=== PATIENT | female | born 1950 | race Caucasian/White ===

== ENCOUNTER → 2024-01-08 | Outpatient (CLI) | payer BC, MEDICARE ==
[2024-01-08 14:20] VITALS: BP 139/72; PULSE 73; RESP 15; TEMP 97.9
--- NOTE | 2024-01-08 14:40 | P.PAINPG ---
PQRS Measure Charge Sheet History and Exam Findings: Imaging or exam suggests Comment: HISTORY OF PRESENT ILLNESS: A 73 yr old female as a referral from Dr Rao presents today w severe and chronic LBP x 3 yrs secondary to DDD, spondylosis and facet arthropathy without myelopathy for evaluation. Pt states pain level is provoked at 9 /10 in intensity, constant, localized in the lumbar spine, predominantly axial, achy in character w occasional shooting pain towards the hips and BLEs. Pain is provoked by walking for periods > 15 min. Pain is alleviated by PT x 2 wks which she is currently in, medications (Mobic), use of a wheelchair and cane for ambulatory assistance, heat, manual massage, repositioning and rest. Oswestry axial pain score at 32. PMH: OA, HTN, NIDDM II, GERD, Fibromyalgia, Anxiety PSH: Cleft Palate Repair, Cholecystectomy, Hysterectomy, Vein Stripping, Colnoscopy, L5-S1 Laminectomy/ Discectomy/ Facetectomy/ Foraminotomy (2011, 2020, 2021), BL Cataract Extraction SH: Negative x3 FH: Fa- CAD/ at age 62. Mo- CAD/ at age 88. Siblings- ALS. All: See list Meds: See list REVIEW OF ORGAN SYSTEMS: CONSTITUTIONAL: No fevers or chills. No recent weight loss. NEUROLOGICAL: + numbness and tingling along the distal extremities. No seizure disorders or headaches. MUSCULOSKELETAL: + pain PSYCHIATRIC: Denies current depression or suicidal thoughts. Physical Examinations : Constitutional : Cooperative , not in acute distress . Neurologic : Cranial nerve II to XII intact. No focal neurological deficits. Psychiatric : alert & oriented x 3. Matching mood & appropriate affect. Judgment & insight intact. Musculoskeletal : Cervical Spine Motor strength in the deltoid and biceps: Normal right side. Normal Left side Motor strength biceps and the wrist extensors: Normal right side . Normal left side Motor strength in the triceps muscle: Normal right side. Normal left side Deep tendon reflexes: Normal at the biceps. Normal at Brachioradialis. Normal at triceps Vertebral body tenderness to deep palpation over Cervical facet loading test: positive bilaterally Spurling test: positive bilaterally Neck distraction test: positive bilaterally Manjula sign: positive bilaterally Lumbar spine Motor strength lower extremities ,thigh and legs 5/5 Right side , 5/5 Left side Deep tendon reflexes : Normal Knee Jerk. Normal Ankle Jerk Vertebral body tenderness over Goins Test positive Lumbar facet Loading Test: positive Right / positive Left Range of motion of the lumbar spine Flexion 30 degrees, extension 10 degrees Straight Leg Raise test: Left/ Right positive at degrees Ovidio test: positive right / positive left. Severe tenderness over the Sacroiliac joint on the Right / Left sides Gaenslen test: positive bilaterally Seated flexion test: positive bilaterally. Sacral spine : Severe tenderness over the Sacroiliac joint: right side / left side Range of motion: Flexion of the lumbar spine <60 degrees Range of motion: Extension of the lumbar spine <20 degrees Gaenslen's Test positive Ovidio test: positive right side / left side Thigh Thrust Test Sacral Thrust Test Assessment/ Plan : CRPS Recommendation of Lumbar Sympathic Ganglion Block and medication management. May need a series of injections for optimal pain relief. Risks, benefits of procedure discussed and patient verbalized understanding. Admits to anti- coagulant use or medical history of diabetes. Protocol for discontinuation/ continuation of medications vinay procedure discussed. Recommendation of [place] 5/325mg #60, Flexeril 5mg #60 w 1 RF. Use, side effects, adverse reactions and safe storage discussed. Narcotic/ Opiate agreement signed 01/08/24. All questions answered. I have spent greater than 30 minutes on patient care today. Dr Kaye was available by phone for the evaluation of this patient. The time was used to review the medical records including relevant urine studies and Prescription history (MAPs), review of the available imaging, evaluation and examination of the patient, coordination of care with the medical staff and if applicable referring physicians, as well as creation of the medical record Home Medications: Ambulatory Orders Bisoprolol [Zebeta] 10 mg PO DAILY 06/13/21 DULoxetine HCL [Cymbalta] 60 mg PO BID 06/13/21 Multivitamins, Thera [Multivitamin (formulary)] 1 tab PO DAILY 06/13/21 Naproxen Sodium [Aleve] 220 mg PO Q12HR PRN 06/13/21 Oxybutynin Chloride 5 mg PO DAILY 06/13/21 Pantoprazole Sodium [Protonix] 40 mg PO DAILY 06/13/21 hydroCHLOROthiazide [Hydrodiuril] 25 mg PO DAILY 06/13/21 metFORMIN HCL [Glucophage] 500 mg PO DAILY 06/13/21 Cyclobenzaprine [Flexeril] 5 mg PO BID PRN 30 Days #60 tablet 01/08/24 HYDROcodone/APAP 5-325MG [[place] 5-325] 1 tab PO BID PRN 30 Days #60 tab 01/08/24 HYDROcodone/APAP 5-325MG [[place] 5-325] 1 tab PO BID PRN 30 Days #60 tab 01/08/24 Controlled Substance Measures - Controlled Substance Measures Is patient prescribed a controlled substance at discharge?: Yes When asked, does pt state using other controlled substances?: No If prescribed controlled substance>3 days was MAPS reviewed?: Yes If Rx opioid, was Start Talking consent form obtained?: Yes Was information provided regarding opioid addiction?: Yes
== END ==
LOC: PNWHC3 13:14
PROVIDERS: ATTEND Specialist
DX: G90.513 Complex regional pain syndrome I of upper limb, bilateral (principal); G90.523 Complex regional pain syndrome I of lower limb, bilateral; M19.90 Unspecified osteoarthritis, unspecified site; I10 Essential (primary) hypertension; E11.9 Type 2 diabetes mellitus without complications; K21.9 Gastro-esophageal reflux disease without esophagitis; F41.9 Anxiety disorder, unspecified; Z88.2 Allergy status to sulfonamides; Z79.899 Other long term (current) drug therapy; Z79.84 Long term (current) use of oral hypoglycemic drugs
CPT/HCPCS: 99211

== ENCOUNTER 2024-02-12 12:46 | Day surgery (SDC) | payer MEDICARE ==
[2024-02-09 15:45] VITALS: BMI 38.2
[2024-02-12] MEDS: LACTATED RINGERS 1,000 ML IV SCH (13:05)
[2024-02-12 13:32] LABS: Glucose,Whole Blood 107 mg/dL (70-110)
[2024-02-12 13:38] VITALS: TEMP 97.6
[2024-02-12] MEDS ORDERED: methylPREDNISolone ACETATE 40 MG/ML 1 ML VIAL ONE (14:06)
[2024-02-12] MEDS ORDERED: ROPIVACAINE 5MG/ML 20ML VIAL ONE (14:06)
[2024-02-12] MEDS ORDERED: IOPAMIDOL M200 10 ML VIAL ONE (14:06)
--- NOTE | 2024-02-12 14:22 | P.PCN ---
Date of Procedure: 02/12/24 Procedure(s) Performed: PREOPERATIVE DIAGNOSIS: complex regional pain syndrome.Type I , bilateral lower Extremities. POSTOPERATIVE DIAGNOSIS: complex regional pain syndrome.Type I , bilateral lower Extremities. . PROCEDURE: Bilateral lumbar sympathetic block with fluoroscopic guidence (fluoroscopy images available in radiology department ) ANESTHESIA: Local with 1% lidocaine 5 ml . EBL: None. PROCEDURE INDICATION: The patient with RSD which has responded to lumbar sympathetic block. The previous one lasted one month. PROCEDURE DESCRIPTION: The patient was seen and identified in the preoperative area. Risks, benefits, complications, and alternatives were discussed with the patient. The patient agreed to proceed with the procedure and signed the consent. IV was started, and vital signs were stable. Patient was taken to the OR and time out was completed. The patient was placed in the prone position on procedure table and a pillow was placed under the abdomen to reduce lumbar lordosis. The lumbosacral area was prepped and draped in the usual sterile fashion. Critical pause was taken. Vital signs were closely monitored during the procedure. Fluoroscopy was used to identify the L3 vertebra and target points were marked.5 cc Lidocaine 1% was used with a 25 guage needle to achieve adequate local anesthesia of the skin and subcutaneous tissue. Two 22-guage,7-inch spinal needles were inserted through the skin at the lateral border of the right side of L3 vertebral body and then advanced under fluoroscopic guidance in oblique, anterior, and lateral views. The needles were advanced to the kurtis-lateral border of the vertebra from the right side and 3cc of Omnipaque 300 was injected to confirm needle position. After satisfactory positioning of the needles, and negative aspiration of blood, CSF 15 cc of 0.25 % preservative free Ropivacaine with 20 mg Depo-medrol was injected with intermittent aspiration. [place] were withdrawn intact. And then the exact same procedure was repeated for the left side and we did left-sided lumbar sympathetic block COMPLICATIONS: None. COMMENTS: DISPOSITION / PLANS: The patient was placed in a supine position and transferred to the recovery area in a stable condition for observation and was discharged from the recovery room after meeting discharge criteria. Home discharge instructions given to the patient by the staff. The patient was reexamined prior to discharge. The patient will schedule a follow up in the clinic
--- NOTE | 2024-02-12 14:30 | FL ---
EXAMINATION TYPE: FL guided pain mgmt statistic DATE OF EXAM: 02/12/2024 HISTORY: Fluoroscopy time Total dose area product (DAP) in uGy*m?, mGy*cm? (or similar): 0.68519 IMPRESSION: 1. Fluoroscopy time.
[2024-02-12 14:52] VITALS: BP 142/84; PULSE 78; RESP 18
== END 2024-02-12 14:59 | disposition home or self-care (01) ==
LOC: ORPAIN 12:46
PROVIDERS: ATTEND Specialist
DX: G90.523 Complex regional pain syndrome I of lower limb, bilateral (principal); E11.9 Type 2 diabetes mellitus without complications; I10 Essential (primary) hypertension; Z79.82 Long term (current) use of aspirin
CPT/HCPCS: 64520; J1030; Q9966; J2795